=== PATIENT | male | born 1980 | race Caucasian/White ===

== ENCOUNTER 2018-06-25 17:09 | Emergency (ER) | payer BC ==
[2018-06-25] MEDS ORDERED: Albuterol/Ipratropium NEB.SOL* Albuterol 2.5 MG/Ipratropium 0.5 MG 3 ML INH ONE (17:34)
[2018-06-25] MEDS ORDERED: predniSONE TAB* 20 MG PO ONE (17:41)
--- NOTE | 2018-06-25 17:41 | UC ---
Cardiac HPI - HPI Summary HPI Summary: C/O right anterior chest pain the woke him up this morning and has felt SOB with pain with taking a deep breath. URI symptoms with sore throat congestion and cough as well. Positive smoker. - History of Current Complaint Chief Complaint: UCChestPain Stated Complaint: CHEST PAIN,SOB Time Seen by Provider: 06/25/18 17:16 Hx Obtained From: Patient Onset/Duration: Sudden Onset - 5 am this morning., Still Present Timing: Constant Initial Severity: Moderate Current Severity: Moderate Pain Intensity: 5 Chest Pain Location: Right Anterior Character: Sharp/Stabbing Aggravating Factor(s): Deep Breaths Alleviating Factor(s): Rest, Position Associated Signs & Symptoms: Positive: Chest Pain, SOB, Fever, Cough - Allergy/Home Medications Allergies/Adverse Reactions: Allergies Allergy/AdvReac Type Severity Reaction Status Date / Time seasonal Allergy Congestion Uncoded 06/25/18 17:26 PMH/Surg Hx/FS Hx/Imm Hx Psychological History: Anxiety - Surgical History Surgical History: None - Family History Known Family History: Positive: Unknown Negative: Cardiac Disease, Hypertension, Diabetes - Social History Occupation: Employed Full-time Lives: With Family Alcohol Use: None Substance Use Type: Other Substance Use Comment - Amount & Last Used: 2 cups coffee daily Smoking Status (MU): Heavy Every Day Tobacco Smoker Type: Cigarettes Amount Used/How Often: 1/2 pack Length of Time of Smoking/Using Tobacco: 20 years Household Exposure Type: Cigarettes Cessation Counseling: Patient Advised to Stop Review of Systems ENT: Sore Throat, Nasal Discharge Respiratory: Shortness Of Breath, Cough Cardiovascular: Chest Pain Is Patient Immunocompromised?: No All Other Systems Reviewed And Are Negative: Yes Physical Exam Triage Information Reviewed: Yes Appearance: Ill-Appearing, Pain Distress - mild Vital Signs: Initial Vital Signs Temp 101.3 F 06/25/18 17:14 Pulse 105 06/25/18 17:14 Resp 28 06/25/18 17:14 BP 142/90 06/25/18 17:14 Pulse Ox 99 06/25/18 17:14 Vital Signs Reviewed: Yes Eyes: Positive: Conjunctiva Clear ENT: Positive: Pharynx normal, Nasal congestion, TMs normal Neck exam: Normal Respiratory: Positive: Chest non-tender, Wheezing - expiratory wheezes diffusely Cardiovascular Exam: Normal Musculoskeletal Exam: Normal Neurological Exam: Normal Psychological Exam: Normal Skin Exam: Normal Re-Evaluation - Re-Evaluation First Eval Re-Evaluation Time: 17:55 Change: Improved - lungs clear - Differential Diagnoses - Chest Pain Differential Diagnosis/HQI/PQRI: Acute OH, Chest Wall, Lower Respiratory Infection - Clinical Impression Provider Diagnoses: Muscular chest wall pain, right anterior. Acute URI. Acute bronchospasm. Smoking Discharge - Sign-Out/Discharge Documenting (check all that apply): Patient Departure All imaging exams completed and their final reports reviewed: No Studies - Discharge Plan Condition: Stable Disposition: HOME Prescriptions: predniSONE TAB* [Deltasone 20 MG TAB*] 20 mg PO DAILY #18 tab Patient Education Materials: Chest Wall Pain (ED), Upper Respiratory Infection (ED), Wheezing (ED), Prednisone (By mouth), How to Use a Metered-Dose Inhaler ( ED) Referrals: Karen Cazares MD [Primary Care Provider] - Additional Instructions: Smoking Cessation Tricks. 1. Cut down by 1 cigarette per day every 2-3 days. Write the number of smokes for that day on the calendar. 2. Identify triggers to smoking: after meals, on the phone, in the car, with coffee, on breaks at work, etc. 3. Formulate a plan with a behavior to replace the smoking. Fireballs in the car , doodle pad on the phone, flavored creamer for the coffee, go for a walk after a meal or on break at work. 4. For stress smokes do deep breathing relaxation. Breath deep in through the nose hold the breath in for a few seconds then breath out slowly through the mouth. - Billing Disposition and Condition Condition: STABLE Disposition: Home
[2018-06-25] MEDS ORDERED: Albuterol HFA INHALER* 8 gm MDI INH ONE (18:01)
[2018-06-25 18:34] VITALS: BP 149/86
== END 2018-06-25 18:30 | disposition home or self-care (01) ==
LOC: UCCORT 17:09
DX: M79.1 Myalgia (principal); R07.89 Other chest pain; J06.9 Acute upper respiratory infection, unspecified; J98.01 Acute bronchospasm; F17.210 Nicotine dependence, cigarettes, uncomplicated
CPT/HCPCS: 93005; 99213; A9270-GY; G0463; J7512

== ENCOUNTER 2018-07-07 21:39 | Emergency (ER) | payer BC, OTHER ==
[2018-07-07 21:57] VITALS: BP 154/103
[2018-07-07] MEDS ORDERED: Silver Sulfadiazine 1%* 20 GM TOPICAL ONE (22:13)
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
== END 2018-07-07 22:35 | disposition home or self-care (01) ==
LOC: UCCORT 21:39
DX: T25.222A Burn of second degree of left foot, initial encounter (principal); T23.101A Burn of first degree of right hand, unspecified site, initial encounter; T31.0 Burns involving less than 10% of body surface; T79.9XXA Unspecified early complication of trauma, initial encounter; X12.XXXA Contact with other hot fluids, initial encounter; Y92.9 Unspecified place or not applicable; F17.210 Nicotine dependence, cigarettes, uncomplicated
CPT/HCPCS: 16020; 99213; A9270-GY; G0463